=== PATIENT | female | born 1980 | race Caucasian/White ===

== ENCOUNTER 2020-05-27 03:14 | Emergency (ER) | payer SELFPAY ==
[2020-05-27] MEDS ORDERED: ACETAMINOPHEN 325 MG TABLET PO ONE (03:33)
--- NOTE | 2020-05-27 06:10 | RADIOLOGY REPORT (SQ) ---
EXAM DESCRIPTION: XR FOREARM 2 VIEWS COMPLETED DATE/TME: 05/27/2020 05:02 CLINICAL HISTORY: 40 years, Female, swelling and pain COMPARISON: None. NUMBER OF VIEWS: 2 TECHNIQUE: 2 view left forearm LIMITATIONS: None. FINDINGS: Negative for acute fracture or dislocation. Soft tissue swelling along the radial aspect of the distal forearm. No soft tissue gas IMPRESSION: Soft tissue swelling without fracture copyright 2011 [employer]- All Rights Reserved
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
[2020-05-27 07:15] VITALS: BP 134/90
== END 2020-05-27 07:14 | disposition home or self-care (01) ==
LOC: ER 03:14
DX: S50.12XA Contusion of left forearm, initial encounter (principal); M79.632 Pain in left forearm; M79.602 Pain in left arm; X50.9XXA Other and unspecified overexertion or strenuous movements or postures, initial encounter; E11.9 Type 2 diabetes mellitus without complications; Z88.8 Allergy status to other drugs, medicaments and biological substances
CPT/HCPCS: 99283